=== PATIENT | female | born 2000 | race Caucasian/White ===

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

== ENCOUNTER → 2022-02-28 | Outpatient (CLI) | payer MEDICAID ==
--- NOTE | 2022-02-28 13:25 | Diagnostic Imaging Report ---
PROCEDURE: US Gallbladder. TECHNIQUE: Multiple real-time grayscale images were obtained over the right upper quadrant in various projections. INDICATION: Right upper quadrant pain. Liver is upper limits of normal in size, approximately 18 cm. Portal vein is patent and shows normal direction of flow. No discrete liver mass is detected. Gallbladder is without stones or sludge. No wall thickening or biliary ductal dilatation is seen. Pancreas unremarkable. Aorta is nonaneurysmal. IVC is patent. Right kidney is without calculi or hydronephrosis. There is no ascites. IMPRESSION: Unremarkable gallbladder ultrasound. Dictated by: Dictated on workstation # [id number]
== END ==
LOC: RAD 09:14
PROVIDERS: ATTEND Surgery
DX: R10.11 Right upper quadrant pain (principal)
CPT/HCPCS: 76705

== ENCOUNTER → 2022-03-10 | Outpatient (CLI) | payer MEDICAID ==
--- NOTE | 2022-03-10 13:20 | Diagnostic Imaging Report ---
INDICATION: Right upper quadrant pain. Patient was administered 5.4 mCi technetium 99m Choletec intravenously and imaging over the abdomen was performed. At 5 minutes patient ingested 8 ounces of Ensure and the gallbladder ejection fraction was calculated. There is homogeneous uptake of activity by the liver with prompt excretion of activity into the gallbladder and common duct. There is normal passage of activity into the small bowel. Gallbladder ejection fraction is low at 27%. Normal values are 35% or greater. IMPRESSION: 1. Patent cystic duct and common bile duct. 2. Low gallbladder ejection fraction of 27%. Dictated by: Dictated on workstation # [id number]
== END ==
LOC: CARD 09:23
PROVIDERS: ATTEND Surgery
DX: R10.11 Right upper quadrant pain (principal)
CPT/HCPCS: 78227; A9537

== ENCOUNTER 2022-03-18 05:33 | Outpatient (CLI) | payer MEDICAID ==
[~2022-03-18] VITALS: Ht 157.5 cm; Wt 65.6 kg
[2022-03-18] MEDS ORDERED: VNL37.5T PO (14:01)
[2022-03-18] MEDS ORDERED: AMPH20TA PO (14:01)
== END 2022-03-18 14:03 | disposition home or self-care (01) ==
LOC: PREOP 05:33
PROVIDERS: ATTEND Surgery
DX: Z01.818 Encounter for other preprocedural examination (principal)

== ENCOUNTER 2022-03-20 10:09 | Day surgery (SDC) | payer MEDICAID ==
[2022-03-20] VITALS (7 sets, daily range): BP systolic 127–138; BP diastolic 74–83
[~2022-03-20] VITALS: Ht 157.5 cm; Wt 65.6 kg
[~2022-03-20 10:09] MED LIST changes: +AMPH20TA PO; +VNL37.5T PO
[2022-03-20] MEDS: LACTATED RINGERS 1,000 ML IV PRN ×2 (10:45→15:15)
[2022-03-20] MEDS ORDERED: ceFAZolin INJECTION 1,000 MG ONE (10:48)
[2022-03-20] MEDS ORDERED: LIDOCAINE/EPI 2% 1:200,00 (XYLOCAINE) 20 ML VIAL ONE (13:25)
[2022-03-20] MEDS ORDERED: ceFAZolin INJECTION 1,000 MG VIAL IV ONE (13:30)
[2022-03-20] MEDS ORDERED: LIDOCAINE PF 2% 5 ML (XYLOCAINE) VIAL ONE (13:54)
[2022-03-20] MEDS ORDERED: ROCURONIUM 10 MG/ML 5 ML SYRINGE IV ONE (13:54)
[2022-03-20] MEDS ORDERED: MIDAZOLAM 2 MG/2 ML (VERSED) VIAL ONE (13:54)
[2022-03-20] MEDS ORDERED: proPOfol 200 MG/20 ML (DIPRIVAN) VIAL IV ONE (13:54)
[2022-03-20] MEDS ORDERED: fentaNYL INJ 100 MCG/2 ML AMP ONE (13:54)
--- NOTE | 2022-03-20 14:36 | Progress Note-Pre Operative ---
Pre-Operative Progress Note Date of Available H&P: Mar 20, 2022 Date H&P Reviewed: Mar 20, 2022 Time H&P Reviewed: 14:00 History & Physical: No changes noted Pre-Operative Diagnosis: symptomatic biliary dyskinesia DELISA BRADEN MD Mar 20, 2022 14:36
[2022-03-20] MEDS ORDERED: oxyCODONE/APAP 5/325MG (PERCOCET 5) TABLET PO PRN (14:45)
[2022-03-20] MEDS ORDERED: ONDANSETRON 4 MG/2 ML (SDV) Z0FRAN IVP PRN ×2 (14:45→16:00)
[2022-03-20] MEDS ORDERED: morphine INJ 10 MG/ML 1ML (SYR OR VIAL) IVP PRN (14:45)
[2022-03-20] MEDS ORDERED: ACETAMINOPHEN 325 MG TABLET PO PRN (14:45)
--- NOTE | 2022-03-20 14:50 | Discharge Inst-Surgical ---
D/C Lap Instructions-KIDO Reconcile Patient Problems Problems Reviewed?: Yes New, Converted, or Re-Newed RX: RX on Chart Follow Up Appt in 2 weeks Activity as tolerated No driving for 24 hours No driving while on pain medications Incentive Spirometry use every 2 hours while awake Regular Diet Symptoms to Report: Fever over 101 degree F, Nausea/Vomiting Infection Signs and Symptoms to report: Increased redness, Foul odor of wound, Increased drainage Bathing instructions: May shower Operative Area Clean/Dry; Keep incision clean/dry If any problems/questions: Contact your physician or go to Emergency Room SILVINO BRITTON APRN Mar 20, 2022 14:50
[2022-03-20] MEDS ORDERED: SEVOFLURANE (ULTANE) 15 ML INHAL SOLN ONE ×2 (15:37→15:39)
[2022-03-20] MEDS ORDERED: ONDANSETRON 4 MG/2 ML (SDV) Z0FRAN ONE (15:38)
[2022-03-20] MEDS ORDERED: NEOSTIGMINE (BLOXIVERZ ) 1 MG/1ML 10 ML VIAL ONE (15:41)
[2022-03-20] MEDS ORDERED: GLYCOPYRROLATE 0.2 MG/ML (ROBINUL) 2 ML VIAL ONE (15:41)
--- NOTE | 2022-03-20 15:41 | Progress Note-Post Operative ---
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
[2022-03-20] MEDS ORDERED: HYDROmorphone 2 MG/ML VIAL (DILAUDID) ONE (15:51)
--- NOTE | 2022-03-20 15:52 | Anesthesia-General Post-Op ---
General Patient Condition Mental Status/LOC: Same as Preop Cardiovascular: Satisfactory Nausea/Vomiting: Absent Respiratory: Satisfactory Pain: Controlled Complications: Absent Post Op Complications Complications None Follow Up Care/Instructions Patient Instructions None needed. Anesthesia/Patient Condition Patient Condition Patient is doing well, no complaints, stable vital signs, no apparent adverse anesthesia problems. No complications reported per nursing. KUSUM QUILES CRNA Mar 20, 2022 15:52
[2022-03-20] MEDS ORDERED: MEPERIDINE (DEMEROL) INJ 50 MG/ML ONE (15:55)
[2022-03-20] MEDS ORDERED: MEPERIDINE (DEMEROL) INJ 50 MG/ML IVP ONE (16:00)
[2022-03-20] MEDS ORDERED: PROMETHAZINE INJ 25 MG/ML (PHENERGAN) AMP IVP ONE (16:00)
[2022-03-20] MEDS ORDERED: morphine INJ 10 MG/ML 1ML (SYR OR VIAL) IVP ONE (16:00)
[2022-03-20] MEDS ORDERED: fentaNYL INJ 100 MCG/2 ML AMP IVP ONE (16:00)
[2022-03-20] MEDS ORDERED: HYDROmorphone 2 MG/ML VIAL (DILAUDID) IV ONE (16:00)
[2022-03-20] MEDS ORDERED: oxyCODONE/APAP 5/325MG (PERCOCET 5) TABLET ONE (16:54)
--- NOTE | 2022-03-20 21:28 | OPERATIVE REPORT ---
DATE OF SERVICE: 03/20/2022 ATTENDING PRIMARY CARE PHYSICIAN: Dr. Markie Prasad. PREOPERATIVE DIAGNOSIS: Symptomatic biliary dyskinesia. POSTOPERATIVE DIAGNOSIS: Symptomatic biliary dyskinesia. PROCEDURE: Laparoscopic cholecystectomy. SURGEON: Delisa Jon MD. FABRICATION INSPECTOR: Vlad Mejia APRN. ANESTHESIA: General endotracheal. ESTIMATED BLOOD LOSS: Minimal. FINDINGS: Symptomatic biliary dyskinesia. DISPOSITION: The patient tolerated the procedure well. INDICATIONS: The patient is a 21-year-old female known to us. We had seen her in 10/2020 for gastroesophageal reflux disease as well as rectal bleeding and she did undergo an EGD and colonoscopy. She was found to have a reflux esophagitis Lawn grade B and a mild to moderate gastritis and a mild proctitis. Biopsies were negative for H. pylori as well as negative for Small's esophagus. Biopsies from the terminal ileum were unremarkable. She reports that she has had worsening diarrhea, but she also has developed intermittent pain in the right upper abdominal quadrant, usually after eating meals and this pain also radiates towards the back. She underwent an ultrasound, which did not show any gallstones; however, HIDA scan was performed, which did show a low ejection fraction and reproduction of symptoms consistent with a biliary dyskinesia. DESCRIPTION OF PROCEDURE: The patient was brought to the operating room, laid supine on the table. After adequate IV pain and sedative medications and general endotracheal intubation, the abdomen was prepped and draped in standard surgical fashion. A 0.5% Marcaine with epinephrine was used to anesthetize overlying skin in the left upper abdominal quadrant and transverse skin incision made using a 15 blade. An 0 silk suture was applied to the medial aspect of the incision for retraction and a Veress needle inserted with a low opening pressure of 0 mmHg. The abdomen was then insufflated to 15 mmHg pressure. The Veress needle removed and a 5 mm XL trocar placed followed by a 5 mm 45-degree angle laparoscope visualizing the peritoneal cavity. A 4-quadrant abdominal exploration was performed. There was a slightly distended gallbladder, no gallbladder wall thickening. Under direct visualization, we then proceeded to place an infraumbilical 10 mm port after the skin and peritoneal lining were anesthetized using 0.5% Marcaine with epinephrine and a transverse skin incision made using 15 blade. In a similar manner, a right upper abdominal quadrant 5 mm port was placed. The fundus of the gallbladder was then retracted anteriorly and superiorly. The entire critical view of safety was identified with blunt dissection as well as electrocautery on the hook instrument as well as a [place] dissector. This included the triangle of Calot as well as the cystic duct and artery as the only two structures going into the gallbladder as well as the cystic plate behind the proximal gallbladder. A timeout was then taken, and the cystic duct and artery were then clipped proximally and distally and cut with EndoShears. The gallbladder was then dissected off the liver bed using cautery on the hook instrument with visualization of good hemostasis as well as no leaking ducts of Luschka. The gallbladder was removed through the 10 mm port site using an EndoCatch bag. The 10 mm port site fascia and peritoneum were then closed under direct visualization using a Levi-Leo device and 0 Vicryl suture. The abdomen was desufflated. The remaining ports removed. All skin incisions were closed using 4-0 Monocryl running subcuticular sutures. Wounds were then cleaned and covered with Dermabond. The patient tolerated the procedure well. We will start IV normal pain medication as well as a clear liquid diet. When she is tolerating clears, has good pain control with oral pain medications, ambulating well, we will discharge her home where she will be instructed to do no heavy lifting or exertion for the next two weeks. Job ID: [id number] DocumentID: [id number] Dictated Date: 03/20/2022 15:47:12 Data Base Administrator Date: 03/20/2022 21:27:10 Dictated By: DELISA JON MD
== END 2022-03-20 18:30 | disposition home or self-care (01) ==
LOC: SDC 10:09
PROVIDERS: ATTEND Surgery
DX: K81.1 Chronic cholecystitis (principal); K82.8 Other specified diseases of gallbladder; K21.00 Gastro-esophageal reflux disease with esophagitis, without bleeding; Z79.899 Other long term (current) drug therapy
CPT/HCPCS: 84703; 87081; 94664

== ENCOUNTER 2022-08-09 18:04 | Emergency (ER) | payer MEDICAID ==
[~2022-08-09] VITALS: Ht 157.4 cm; Wt 65.6 kg
[~2022-08-09 18:04] MED LIST changes: +ALBU8.5H6 IH; -RT-ALBUINH IH
[2022-08-09] MEDS ORDERED: NS IV 1000 ML 1,000 ML IV STA (18:30)
[2022-08-09] MEDS ORDERED: KETOROLAC 15 MG/ML VIAL IVP ONE (18:30)
--- NOTE | 2022-08-09 18:30 | ED General ---
General Chief Complaint: General Problems/Pain Stated Complaint: DIARRHEA | NAUSEA | SORE THROAT | COUGH Nursing Triage Note: C/O NAUSEA, COUGH, DIARRHEA AND STUFFY NOSE. HAS HAD THESE SYMPTOMS FOR OVER A WEEK ADN THEY HAVE NOT GOTTEN ANY BETTER. PATIENT STATES SHE IS NOT USING ANY OVER THE COUNTER MEDICATIONS FOR HER SYMPTOMS BUT WAS GIVEN A SCRIPT FOR TESSALON PEARLS BY HER DR DR MARES ON THURSDAY. Source of Information: Patient History of Present Illness Date Seen by Provider: Aug 09, 2022 Time Seen by Provider: 19:20 Initial Comments Patient is a 22-year-old female who presents to the emergency room with a chief complaint of cough, posttussive emesis, diarrhea runny congested nose and sore throat. She states she has had the symptoms for about 2 weeks. She was tested this last week for flu, strep and COVID all were negative. She states her symptoms or not improving it. She was given a prescription for Tessalon Perles. She has been taking 800 mg ibuprofen her last dose was this morning. She has not taken any since. She has a mild headache. No rashes. No burning with urination. She does have a history of "asthma" but does not currently have an inhaler. Decreased appetite and feels "dehydrated" states that she is only urinated twice today. She is requesting IV fluids and something for pain. All other review of systems reviewed and negative except as stated. Timing/Duration: Other (2 weeks) Severity: Moderate Associated Systoms: Cough, Fever/Chills, Loss of Appetite, Nausea/Vomiting, Shortness of Air Allergies and Home Medications Allergies Coded Allergies: onion (Verified Allergy, Severe, ANAPHYLAXIS, 08/09/22) coconut (Verified Allergy, Mild, tested positive for IgE, has not had reaction/oral challenge, 08/09/22) wheat (Verified Allergy, Mild, tested positive for IgE, has not had reaction/oral challenge, 08/09/22) yeast, dried (Verified Allergy, Mild, tested positive for IgE, has not had reaction/oral challenge, 08/09/22) Zhao's yeast Patient Home Medication List Home Medication List Reviewed: Yes Albuterol Sulfate (Ventolin Hfa) 1 Puff Puff, 2 PUFF IH Q4H, (Reported) Entered as Reported by: JESSICA HOYT on 10/25/20 1038 Amphetamine (Dyanavel Xr) 20 Mg Tab.bp.24h, 20 MG PO DAILY, (Reported) Entered as Reported by: JESSICA HOYT on 03/18/22 1401 Norethindrone AC-Eth Estradiol (Junel 1 mg-20 Mcg Tablet) 1 Each Tablet, (Reported) Entered as Reported by: KADE SAMUEL on 09/13/20 1910 Pantoprazole Sodium (Protonix) 40 Mg Tablet.dr, 40 MG PO DAILY Prescribed by: DELISA BRADEN on 11/02/20 1102 Venlafaxine HCl (Venlafaxine HCl) 37.5 Mg Tab, 37.5 MG PO DAILY, (Reported) Entered as Reported by: JESSICA HOYT on 03/18/22 1401 Review of Systems Review of Systems Constitutional: see HPI, fever, malaise EENTM: nose congestion, throat pain Respiratory: cough, phlegm, short of breath Cardiovascular: no symptoms reported Gastrointestinal: diarrhea, nausea, vomiting Genitourinary: decreased output (only twice today) Musculoskeletal: no symptoms reported Skin: no symptoms reported Psychiatric/Neurological: Headache All Other Systems Reviewed Negative Unless Noted: Yes Past Puzkpqu-Tcoruw-Oomvmu Hx Patient Social History Tobacco Use?: No Use of E-Cig and/or Vaping dev: Yes E-Cig or Vaping type used: Nicotine Substance use?: Yes Substance type: Marijuana Substance frequency: Couple times a week Alcohol Use?: Yes Alcohol type: Hard Liquor Pt feels they are or have been: No Immunizations Up To Date Tetanus Booster (TDap): Less than 5yrs PED Vaccines UTD: Yes Influenza Vaccine Up-to-Date: No; Not Current First/Initial COVID19 Vaccinat: May 2021 Second COVID19 Vaccination Toi: October 2021 Third COVID19 Vaccination Date: May 2021 Seasonal Allergies Seasonal Allergies: Yes Past Medical History Surgery/Hospitalization HX: ASTHMA, ACID REFLUS, SEASONAL ALLERGIES SURG: GB. APPY, 3 RIGHT SHOULDER SURG, LEFT KNEE SURG, TONSILS AND ADNOIDS, SINUS SURGERY. Surgeries: Yes (BMT'S , sinus surgery, dental caps, SHOULDER SURGERY RIGHT ) Adenoidectomy, Appendectomy, Ear Surgery, Orthopedic, Tonsillectomy Respiratory: Yes Asthma Currently Using CPAP: No Currently Using BIPAP: No Cardiac: No Neurological: Yes Concussion, Headaches /Migraines Reproductive Disorders: No Female Reproductive Disorders: Denies, Ovarian Cyst Sexually Transmitted Disease: Yes HIV/AIDS: No Genitourinary: No Gastrointestinal: No Musculoskeletal: No Endocrine: No HEENT: Yes Chronic Ear Infection, Tonsilitis Loss of Vision: Denies Hearing Impairment: Denies Cancer: No Psychosocial: Yes ADD/ADHD Integumentary: No Blood Disorders: No Family Medical History Asthma 19 MOTHER, Onset:Unknown FH: breast cancer Great Aunt, Onset:Unknown FH: colon cancer GRANDFATHER, Onset:Unknown FH: irritable bowel syndrome 19 MOTHER, Onset:Unknown Thyroid disease 19 MOTHER (THYROID CANCER FOUND IN 2014) No Pertinent Family Hx Physical Exam Vital Signs Vital Signs - First Documented 08/09/22 18:10 Temp 36.2 Pulse 93 Resp 18 B/P (MAP) 142/82 (102) Pulse Ox 98 O2 Delivery Room Air Capillary Refill : Less Than 3 Seconds Height, Weight, BMI Height: 5'2.00" Weight: 134lbs. 0.0oz. 60.240267wg; 26.00 BMI Method:Stated General Appearance: Other (tearful, anxious) Eyes: Bilateral Eye Normal Inspection, Bilateral Eye PERRL, Bilateral Eye EOMI HEENT: PERRL/EOMI, TMs Normal, Normal ENT Inspection, Pharyngeal Erythema (mildly erythematous, tonsils surgically absent, no exudate), Other (no sinus tenderness) Neck: Full Range of Motion, Normal Inspection, Supple Respiratory: Lungs Clear, Normal Breath Sounds, No Accessory Muscle Use, No Respiratory Distress, Other (room air sats 98%) Cardiovascular: Regular Rate, Rhythm (tachy 98bpm), Normal Peripheral Pulses Gastrointestinal: Non Tender, Soft Extremity: Normal Capillary Refill, Normal Inspection, Normal Range of Motion, Non Tender, No Calf Tenderness, No Pedal Edema Neurologic/Psychiatric: Alert, Oriented x3, No Motor/Sensory Deficits, Other (tearful) Skin: Normal Color, Warm/Dry; No Rash Progress/Results/Core Measures Suspected Sepsis SIRS Temperature: Pulse: 93 Respiratory Rate: 18 Blood Pressure 142 /82 Mean: 102 Results/Orders My Orders Orders - TU KERN MD Ed Iv/Invasive Line Start (08/09/22 18:30) Ns Iv 1000 Ml (Sodium Chloride 0.9%) (08/09/22 18:30) Ketorolac Injection (Toradol Injection) (08/09/22 18:30) Medications Given in ED Current Medications Medications Dose Ordered Sig/Sunsihne Route Start Time Stop Time Status Last Admin Dose Admin Ketorolac Tromethamine 15 mg ONCE ONCE IVP 08/09/22 18:30 08/09/22 18:32 DC 08/09/22 18:40 15 MG Vital Signs/I&O 08/09/22 18:10 Temp 36.2 Pulse 93 Resp 18 B/P (MAP) 142/82 (102) Pulse Ox 98 O2 Delivery Room Air Capillary Refill : Less Than 3 Seconds Blood Pressure Mean: 102 Progress Note : Time: 19:26 Progress Note Patient seen and evaluated by me. Evaluation today includes physical exam. Exam is pertinent for nasal congestion, hoarse voice mildly erythematous throat. Clear lungs no increased work of breathing, room air sats at 98%. No head and neck lymphadenopathy. No ear infection. No significant sinus tenderness. Differential diagnosis based on history and physical, viral syndrome, bronchitis. Patient reevaluated, she has about 200 cc left of her normal saline bolus. She states that Toradol has not really helped a whole lot just yet. I encouraged her to use Tylenol for her pain as well as either naproxen or ibuprofen. Based on her history and physical most likely continued viral syndrome with post viral cough. Consideration for chest x-ray and labs however history and physical do not support the need. Recommended [id number] DayQuil and NyQuil for her congestion. Will write for an albuterol inhaler for her to use for the cough and shortness of breath. Return precautions provided. She verbalized understanding. Departure Impression Primary Impression: Bronchitis Disposition: 01 HOME, SELF-CARE Condition: Stable Departure-Patient Inst. Decision time for Depature: 19:28 Referrals: CHANELL MARES DO (PCP/Family) Primary Care Physician Patient Instructions: Acute Bronchitis, Adult (DC) Add. Discharge Instructions: Current plan of fluids to stay well-hydrated. Warm salt water gargles along with ibuprofen 3 to 4 pills every 6-8 hours with a little food as needed for throat pain and headache. You can also take extra strength Tylenol 2 tablets every 6 hours in combination with the ibuprofen for headache relief. I would recommend [id number] DayQuil or NyQuil or generic equivalent which will help with congestion and cough. You can continue to take your Tessalon with DayQuil and NyQuil. Use the albuterol inhaler 2 puffs every 6 hours as needed for shortness of breath and cough. If you have any high fever especially with worsening shortness of breath or ot her, emergent symptoms please return to the emergency room for reevaluation. Scripts Albuterol Sulfate (Ventolin Hfa) 90 Mcg Hfa.aer.ad 2 PUFF INH Q6H PRN for shortness of breath/cough, #1 UNIT 1 PUFF = 90 MCG Prov: TU KERN MD 08/09/22 Copy Copies To 1: CHANELL MARES KATHRYN M MD Aug 09, 2022 18:30
[2022-08-09] MEDS ORDERED: ALBU8.5H6 INH (19:31)
[2022-08-09 19:48] VITALS: BP 137/74
== END 2022-08-09 19:49 | disposition home or self-care (01) ==
LOC: EDUNIT# 18:04 → ER 18:07
DX: J40 Bronchitis, not specified as acute or chronic (principal); F17.290 Nicotine dependence, other tobacco product, uncomplicated
CPT/HCPCS: 99281